=== PATIENT | female | born 1980 | race African-American/Black ===

== ENCOUNTER 2018-09-02 23:08 | Emergency (ER) | payer SELFPAY ==
[~2018-09-02] VITALS: Ht 167.6 cm; Wt 97.0 kg
[2018-09-02 23:17] VITALS: BP 127/76
== END 2018-09-03 00:28 | disposition home or self-care (01) ==
LOC: ER 23:08
DX: H66.91 Otitis media, unspecified, right ear (principal); D64.9 Anemia, unspecified
CPT/HCPCS: 99283